=== PATIENT | female | born 1995 | race Caucasian/White ===

== ENCOUNTER → 2017-10-10 | Outpatient (CLI) | payer OTHER | LOC: FIMAGING 15:37 | PROVIDERS: ATTEND Family Medicine | DX: S61.214A Laceration without foreign body of right ring finger without damage to nail, initial encounter (principal) ==

== ENCOUNTER → 2018-02-02 | Outpatient (CLI) | payer OTHER | LOC: BMCIMAGING 11:44 | PROVIDERS: ATTEND Family Medicine | DX: M79.89 Other specified soft tissue disorders (principal) ==

== ENCOUNTER 2018-02-10 14:34 | Emergency (ER) | payer OTHER ==
--- NOTE | 2018-02-10 16:19 | EDPHY ---
H & P Stated Complaint: UTI Time Seen by Provider: 02/10/18 16:12 HPI/ROS: CHIEF COMPLAINT: Urinary tract infection HISTORY OF PRESENT ILLNESS: Patient is healthy 22-year-old female who comes to the emergency department complaining of urinary tract infectious symptoms for the last 4-5 days. She was tested on the and found to have E coli sensitive to all antibiotics. She states that she was started on an antibiotic but she cannot remember which one. She has been taking it sporadically because she has also been vomiting. Yesterday she had a fever but not today. Today she presented to the urgent care because she was not feeling better and they recommended that she come here. Her triage vitals were tachycardic but in the room her heart rate is 79. No shortness of breath. No fever. She denies risk of . She has not vomited today. Severity: Moderate Modifying factors: None REVIEW OF SYSTEMS: Constitutional: denies: chills, fever, recent illness, recent injury EENTM: denies: blurred vision, double vision, nose congestion Respiratory: denies: cough, shortness of breath Cardiac: denies: chest pain, irregular heart rate, lightheadedness, palpitations Gastrointestinal/Abdominal: denies: abdominal pain, diarrhea, nausea, vomiting, blood streaked stools Genitourinary: See HPI Musculoskeletal: denies: joint pain, muscle pain Skin: denies: lesions, rash, jaundice, bruising Neurological: denies: headache, numbness, paresthesia, tingling, dizziness, weakness Hematologic/Lymphatic: denies: blood clots, easy bleeding, easy bruising Immunologic/allergic: denies: HIV/AIDS, transplant 10 systems reviewed and negative except as noted EXAM: GENERAL: Well-appearing, well-nourished and in no acute distress. HEAD: Atraumatic, normocephalic. EYES: Pupils equal round and reactive to light, extraocular movements intact, sclera anicteric, conjunctiva are normal. ENT: TMs normal, nares patent, oropharynx clear without exudates. Moist mucous membranes. NECK: Normal range of motion, supple without lymphadenopathy or JVD. LUNGS: Breath sounds clear to auscultation bilaterally and equal. No wheezes rales or rhonchi. HEART: Regular rate and rhythm without murmurs, rubs or gallops. ABDOMEN: Slight suprapubic discomfort but no tenderness, Soft, nontender, normoactive bowel sounds. No guarding, no rebound. No masses appreciated. BACK: Very mild left CVA tenderness, no spinal tenderness, step-offs or deformities EXTREMITIES: Normal range of motion, no pitting or edema. No clubbing or cyanosis. NEUROLOGICAL: Cranial nerves II through XII grossly intact. Normal speech, normal gait. 5/5 strength, normal movement in all extremities, normal sensation , normal reflexes PSYCH: Normal mood, normal affect. SKIN: Warm, dry, normal turgor, no visible rashes or lesions. Source: Patient Exam Limitations: No limitations - Personal History LMP (Females 10-55): Extended Cycle BCP/Inj - Medical/Surgical History Hx Asthma: Yes Hx Chronic Respiratory Disease: No Hx Diabetes: No Hx Cardiac Disease: No Hx Renal Disease: No Hx Cirrhosis: No Hx Alcoholism: No Hx HIV/AIDS: No Hx Splenectomy or Spleen Trauma: No Other PMH: fibromyalgia, Asthma - Family History Significant Family History: No pertinent family hx - Social History Smoking Status: Never smoked Alcohol Use: Sober Drug Use: None Constitutional: Initial Vital Signs Temperature (C) 36.8 C 02/10/18 14:37 Heart Rate 122 H 02/10/18 14:37 Respiratory Rate 17 02/10/18 14:37 Blood Pressure 137/90 H 02/10/18 14:37 O2 Sat (%) 95 02/10/18 14:37 O2 Delivery Mode Room Air Allergies/Adverse Reactions: No Known Allergies Allergy (Verified 02/10/18 14:36) Home Medications: Medication Instructions Recorded Bcp 11/11/13 Cephalexin [Keflex] 500 mg PO TID #30 cap 02/10/18 Ondansetron Odt [Zofran Odt 4 mg 4 mg PO Q4 PRN #20 tab 02/10/18 (RX)] Medical Decision Making ED Course/Re-evaluation: The patient is well appearing. She has normal vital signs here. She is afebrile and not tachycardic or hypoxic. According to the culture sensitivities any antibiotic should work however she has been somewhat sporadic in taking whenever antibiotic she is on. She is calling pharmacy to find out which 1. I will likely switch her to something else and prescribe Zofran as well. We discussed indications for returning to the emergency department. Patient is eager to go home and declines further workup or observation. We will send her urine again for cultures. The patient cannot get a hold of the pharmacy. None of her friends are at home. I will start her on Keflex and asked her to call us back if this is which she has already been taking and we can switch at that point. I will have her take a prolonged course for likely pyelonephritis. Differential Diagnosis: Partial list of the Differential diagnosis considered include but were not limited to; urinary tract infection, pyelonephritis, sepsis and although unlikely based on the history and physical exam, I also considered severe sepsis , , PID. I discussed these differential diagnoses and the plan with the patient as well as the usual and expected course. The patient understands that the diagnosis is provisional and that in medicine we are not always correct and that further workup is often warranted. Usual and customary warnings were given. All of the patient's questions were answered. The patient was instructed to return to the emergency department should the symptoms at all worsen or return, otherwise to followup with the physician as we discussed. - Data Points Laboratory Results: 02/10/18 15:40 Urine Color CHINTAN Urine Appearance HAZY Urine pH 5.0 (5.0-7.5) Ur Specific [place] 1.027 (1.002-1.030) Urine Protein 1+ H (NEGATIVE) Urine Ketones 1+ H (NEGATIVE) Urine Blood 2+ H (NEGATIVE) Urine Nitrate NEGATIVE (NEGATIVE) Urine Bilirubin NEGATIVE (NEGATIVE) Urine Urobilinogen 2.0 EU H EU (0.2-1.0) Ur Leukocyte Esterase 2+ H (NEGATIVE) Urine RBC 25-50 /hpf H /hpf (0-3) Urine WBC 50-182 /hpf H /hpf (0-3) Ur Epithelial Cells 1+ /lpf /lpf (NONE-1+) Calcium Oxalate Crystal PRESENT /hpf /hpf (NONE-1+) Urine Bacteria TRACE /hpf H /hpf (NONE SEEN) Hyaline Casts 1-5 /lpf /lpf (0-1) Urine Mucus 4+ /lpf H /lpf (NONE-1+) Urine Glucose NEGATIVE (NEGATIVE) Medications Given: Discontinued Medications Cephalexin HCl (Keflex) 500 mg PO EDNOW ONE PRN Reason: Protocol Stop: 02/10/18 16:25 Last Admin: 02/10/18 16:29 Dose: 500 mg Ondansetron HCl (Zofran Odt) 4 mg PO EDNOW ONE Stop: 02/10/18 16:23 Last Admin: 02/10/18 16:29 Dose: 4 mg Departure - Departure Disposition: Home, Routine, Self-Care Clinical Impression: Urinary tract infection Qualifiers: Urinary tract infection type: site unspecified Hematuria presence: without hematuria Qualified Code(s): N39.0 - Urinary tract infection, site not specified Condition: Fair Instructions: Urinary Tract Infection in Women (ED) Referrals: Jade Espino MD [Primary Care Provider] - 1 day, if not improved Stand Alone Forms: Work Excuse Prescriptions: Cephalexin [Keflex] 500 mg PO TID #30 cap Ondansetron Odt [Zofran Odt 4 mg (RX)] 4 mg PO Q4 PRN #20 tab PRN Reason: Nausea & Vomiting
[2018-02-10] MEDS ORDERED: ONDANSETRON DISINTEGRATING 4 MG TAB PO ONE (16:22)
[2018-02-10] MEDS ORDERED: CEPHALEXIN 500 MG CAP PO ONE (16:24)
[2018-02-10 16:30] VITALS: BP 119/82
== END 2018-02-10 16:42 | disposition home or self-care (01) ==
DX: N39.0 Urinary tract infection, site not specified (principal)

== ENCOUNTER 2018-06-15 15:23 | Emergency (ER) | payer OTHER ==
--- NOTE | 2018-06-15 16:28 | EDPHY ---
H & P Time Seen by Provider: 06/15/18 16:21 HPI/ROS: CHIEF COMPLAINT: Right flank pain HISTORY OF PRESENT ILLNESS: History of multiple UTIs, was feeling well at 2:25 p.m. Today when she sat down to pee, and was texting her mother and had sudden onset of severe right-sided flank pain which radiated around the right side into her bladder associated with dysuria. Symptoms were severe and associated with nausea, but now feels just some burning and although symptoms are still present she says that she could "just ignore it." Not associated with vaginal bleeding or discharge, recent injury or fall, fever or chills. No diarrhea. REVIEW OF SYSTEMS: Eye: no change in vision ENT: no sore throat Cardiac: no chest pain or syncope Pulmonary: no cough or SOB Abdomen: HPI Musculoskeletal: Right flank pain HPI Skin: no rash Neuro: no headache Constitutional: no fever : HPI no gross hematuria A comprehensive 10 point review of systems is otherwise negative aside from elements mentioned in the history of present illness. PAST MEDICAL HISTORY: Frequent UTI, fibromyalgia, asthma Social history: Nonsmoker General Appearance: Alert and conversant, cooperative. Eyes: No scleral icterus. ENT, Mouth: Normal mucous membranes. Respiratory: Normal respiratory effort, breath sounds equal, lungs are clear to auscultation. Cardiovascular: Regular rate and rhythm. Gastrointestinal: Does not have McBurney's point tenderness or epigastric tenderness. No right upper quadrant tenderness or Wilder sign. No rebound or guarding. Neurological: Alert, face symmetric, normal motor and sensory in extremities. Skin: Warm and dry, no rashes. Musculoskeletal: No peripheral edema. Psychiatric: Not agitated. Emergency Department course/MDM: Patient appears comfortable, does not have peritoneal signs. We discussed that I do not see clinical indication for blood testing which the patient is in agreement. Urinalysis shows microscopic hematuria without evidence of infection, will proceed with retroperitoneal ultrasound evaluation for renal colic. 1800: Results discussed, patient is minimally symptomatic now, does not have evidence of active renal colic, patient is warned that I recommend urology referral for microscopic hematuria. Discussed no definitive diagnosis is established, I think the likelihood of an acute emergent medical or surgical condition is low. Smoking Status: Never smoked Constitutional: Initial Vital Signs Temperature (C) 36.8 C 06/15/18 15:28 Heart Rate 76 06/15/18 15:28 Respiratory Rate 16 06/15/18 15:28 Blood Pressure 139/81 H 06/15/18 15:28 O2 Sat (%) 98 06/15/18 15:28 O2 Delivery Mode Room Air Allergies/Adverse Reactions: No Known Allergies Allergy (Verified 06/15/18 15:27) Home Medications: Medication Instructions Recorded Bcp 11/11/13 Cymbalta 06/15/18 [place] 06/15/18 Medical Decision Making - Diagnostics Imaging Results: Imaging Impressions Abdomen/Pelvis Ultrasound 06/15/18 16:40 Impression: Normal renal ultrasound without evidence of nephrolithiasis or hydronephrosis. Eliceo Donovan was notified of these findings by telephone at 5:34 PM on 06/15/2018 Imaging: Discussed imaging studies w/ call centre supervisor Radiologist - Data Points Laboratory Results: 06/15/18 06/15/18 16:10 15:30 Urine Color YELLOW Urine Appearance HAZY Urine pH 5.0 (5.0-7.5) Ur Specific [place] 1.023 (1.002-1.030) Urine Protein 1+ H (NEGATIVE) Urine Ketones NEGATIVE (NEGATIVE) Urine Blood 3+ H (NEGATIVE) Urine Nitrate NEGATIVE (NEGATIVE) Urine Bilirubin NEGATIVE (NEGATIVE) Urine Urobilinogen 4.0 EU H EU (0.2-1.0) Ur Leukocyte Esterase NEGATIVE (NEGATIVE) Urine RBC 50-182 /hpf H /hpf (0-3) Urine WBC 3-5 /hpf H /hpf (0-3) Ur Epithelial Cells TRACE /lpf /lpf (NONE-1+) Calcium Oxalate Crystal PRESENT /hpf /hpf (NONE-1+) Urine Bacteria TRACE /hpf H /hpf (NONE SEEN) Hyaline Casts 1-5 /lpf /lpf (0-1) Urine Mucus 2+ /lpf H /lpf (NONE-1+) Urine Glucose NEGATIVE (NEGATIVE) Urine Test NEGATIVE Departure - Departure Disposition: Home, Routine, Self-Care Clinical Impression: Right flank pain, Microscopic hematuria Condition: Good Instructions: Flank Pain (ED) Additional Instructions: Please follow-up up with Urology or your primary care doctor next week. You had a small amount of blood on microscopic evaluation of your urine. Normal ultrasound. Referrals: Jade Espino MD [Primary Care Provider] - As per Instructions Mando Olmos MD [Medical Doctor] - As per Instructions Stand Alone Forms: Work Excuse
[2018-06-15 18:10] VITALS: BP 121/73
== END 2018-06-15 18:10 | disposition home or self-care (01) ==
DX: R10.9 Unspecified abdominal pain (principal); R31.29 Other microscopic hematuria